=== PATIENT | female | born 1935 | race Caucasian/White ===

== ENCOUNTER 2016-11-18 14:02 | Outpatient (CLI) | payer MEDICARE | END 2016-11-18 14:03 | disposition home or self-care (01) | DX: Z12.31 Encounter for screening mammogram for malignant neoplasm of breast (principal) ==

== ENCOUNTER 2017-11-05 11:13 | Outpatient (CLI) | payer MEDICARE ==
--- NOTE | 2017-11-05 11:51 | XRAY Report ---
TWO VIEW CHEST: 11/05/2017 CLINICAL INDICATION: Persistent cough for 3 months. FINDINGS: Frontal and lateral views of the chest demonstrate a normal cardiac silhouette. The lungs demonstrate peripheral interstitial opacities, likely representing mild fibrosis. No focal consolidation, effusion, or pneumothorax is present. IMPRESSION: LIKELY MILD PERIPHERAL FIBROSIS. TD: 11/05/2017 11:50
== END 2017-11-05 11:14 | disposition home or self-care (01) ==
LOC: DI 11:13
PROVIDERS: ATTEND Internal Medicine
DX: R05 Cough (principal)
CPT/HCPCS: 71046

== ENCOUNTER 2017-12-21 17:05 | Emergency (ER) | payer MEDICARE ==
--- NOTE | 2017-12-21 17:36 | ED Physician Documentation ---
History of Present Illness - Stated complaint Stated Complaint: MENTAL STATUS CHANGE - History obtained from History obtained from: Patient, Family () - History of Present Illness Timing: Other (3 weeks of increasing phobias, aggression. 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 Times of lucidity pat when their kids are present. Most of the hx from the due to poor memory. Of note her was diagnosed with pancreatic cancer in July of this year. He has been stable since then that is about when the symptoms started. Also of note the says that she is pretty much normal when the kids are at home.) Review of Systems Unable to obtain: Confused PD PAST MEDICAL HISTORY - Present Medications Home Medications: Ambulatory Orders Medication Instructions Recorded Confirmed Citalopram Hydrobromide 12/21/17 [Citalopram HBr] QUEtiapine [SEROquel] 25 mg PO QPM #30 tablet 12/21/17 - Allergies Allergies/Adverse Reactions: Allergies Allergy/AdvReac Type Severity Reaction Status Date / Time No Known Drug Allergies Allergy Verified 12/21/17 17:36 - Social History Does the pt smoke?: Yes Smoking Status: Heavy tobacco smoker Does the pt drink ETOH?: No Does the pt have substance abuse?: No - Family History Family history: reports: Non contributory PD ED PE NORMAL - Vitals Vital signs reviewed: Yes - General General: Other (Alert, oriented to person/place/month but not situation) - HEENT HEENT: PERRL, EOMI - Neck Neck: Supple, no meningeal sign, No bony TTP - Cardiac Cardiac: RRR, Other (Loud systolic murmur which they were aware of, she used to have to have dental prophylaxis.) - Respiratory Respiratory: No respiratory distress, Clear bilaterally - Abdomen Abdomen: Normal bowel sounds, Soft, Non tender - Extremities Extremities: No edema, No calf tenderness / cord - Neuro Neuro: rate and cost analyst 2-12 intact, Normal speech. No: Alert and oriented X 3 Eye Opening: Spontaneous Motor: Obeys Commands Verbal: Confused GCS Score: 14 - Psych Psych: Normal mood, Normal affect Results - Vitals Vitals: Vital Signs - 24 hr 12/21/17 12/21/17 12/21/17 17:38 19:32 20:03 Temperature 36.4 C L Heart Rate 78 82 77 Respiratory 19 25 H 22 Rate Blood Pressure 117/67 139/48 H 127/51 L O2 Saturation 100 99 97 12/21/17 20:30 Temperature Heart Rate 76 Respiratory 26 H Rate Blood Pressure 128/50 L O2 Saturation 96 Oxygen O2 Source Room air - Labs Labs: Laboratory Tests 12/21/17 12/21/17 12/21/17 18:26 18:26 18:26 WBC 8.4 RBC 4.25 Hgb 13.0 Hct 39.2 MCV 92.2 MCH 30.6 MCHC 33.1 RDW 13.0 Plt Count 197 MPV 8.1 Neut # 6.0 Lymph # 1.6 Reagan # 0.7 Eos # 0.1 Baso # 0.0 Absolute Nucleated RBC 0.00 Nucleated RBC % 0.0 Sodium 138 Potassium 3.8 Chloride 101 Carbon Dioxide 28 Anion Gap 9.0 BUN 13 Creatinine 0.9 Estimated GFR (MDRD) 60 L Glucose 109 H Calcium 8.9 Total Bilirubin 0.7 AST 21 ALT 23 Alkaline Phosphatase 66 Total Protein 6.5 L Albumin 3.6 Globulin 2.9 Albumin/Globulin Ratio 1.2 Lipase 35 TSH 2.74 - Rads (name of study) CT Head Radiology: EMP read contemporaneously (atrophy, NAD) PD MEDICAL DECISION MAKING - ED course ED course: 82-year-old woman with situational dementia related to her 's cancer diagnosis which improves when her children are home 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 We trialed a small dose of ketamine in the department which really had no change, good or bad. I offered the multiple options for disposition including home and he can call in home caregivers versus staying in the ER for potential transfer to [facility] for evaluation for [facility]-psychiatry tomorrow and he opted for the former. Case discussed by phone with her PCP, Dr. Wayne who recommended Seroquel, 25 mg at night. Departure - Departure Disposition: Home, Self Care Clinical Impression: Pseudodementia Condition: Good Record reviewed to determine appropriate education?: Yes Instructions: ED Confusion, ED Dementia Caregiver Support Prescriptions: QUEtiapine [SEROquel] 25 mg PO QPM #30 tablet Comments: I will call in whatever prescription Dr. Wayne and I choose to [facility] in [place]. Return if worse. Some options for in-home care include [facility], . Or Home instead [facility], Discharge Date/Time: 12/21/17 20:30
[2017-12-21] MEDS ORDERED: KETAMINE 500 MG/10 ML VIAL IVP STA (18:14)
[2017-12-21 18:38] LABS: BASOPHILS % (AUTO) 0.5 %; EOSINOPHILS # (AUTO) 0.1 10^3/uL (0.0-0.7); EOSINOPHILS % (AUTO) 0.8 %; LYMPHOCYTES # (AUTO) 1.6 10^3/uL (1.5-3.5); LYMPHOCYTES % (AUTO) 18.8 %; MEAN CORPUSCULAR HEMOGLOBIN 30.6 pg (27.0-31.0); MEAN CORPUSCULAR HGB CONC 33.1 g/dL (32.0-36.0); MEAN CORPUSCULAR VOLUME 92.2 fL (81.0-99.0); MEAN PLATELET VOLUME 8.1 fL (7.9-10.8); MONOCYTES # (AUTO) 0.7 10^3/uL (0.0-1.0); MONOCYTES % (AUTO) 8.7 %; NEUTROPHILS % (AUTO) 71.2 %; PLT - PLATELET COUNT 197 10^3/uL (130-450); RED BLOOD COUNT 4.25 10^6/uL (4.20-5.40); WHITE BLOOD COUNT 8.4 x10^3/uL (4.8-10.8)
--- NOTE | 2017-12-21 18:40 | CT Preliminary Report ---
Exam: CT HEAD W/O IMPRESSION: Generalized age-related cortical atrophic changes without evidence of acute intracranial abnormality. [facility] SITE ID: [id number]
--- NOTE | 2017-12-21 18:40 | CT Report ---
EXAM: CT HEAD EXAM DATE: 12/21/2017 06:22 PM. CLINICAL HISTORY: Altered. Altered mental status, repetitive, confusion. COMPARISON: None. TECHNIQUE: Multiaxial CT images were obtained from the foramen magnum to the vertex. Reformats: Coron al. IV contrast: None. In accordance with CT protocol optimization, one or more of the following dose reduction techniques w ere utilized for this exam: automated exposure control, adjustment of mA and/or KV based on patient s ize, or use of iterative reconstructive technique. FINDINGS: Parenchyma: No intraparenchymal hemorrhage. No evidence of mass, midline shift, or CT findings of acu te infarction. Valdes-white differentiation is distinct. Mild bilateral chronic microangiopathic white matter changes are evident. Extraaxial Spaces: Normal for age. No subdural or epidural collections identified. Ventricles: The ventricles and cortical sulci are enlarged, consistent with age-related tissue loss. Sinuses: Mild right maxillary sinus mucosal thickening. Bones: No evidence of fracture or calvarial defect. IMPRESSION: Generalized age-related cortical atrophic changes without evidence of acute intracranial abnormality. [facility] Referring Provider Line: [phone] SITE ID: [id number]
[2017-12-21 18:49] LABS: ALBUMIN 3.6 g/dL (3.2-5.5); ALBUMIN/GLOBULIN RATIO 1.2 (1.0-2.2); BILIRUBIN,TOTAL 0.7 mg/dL (0.2-1.0); CALCIUM 8.9 mg/dL (8.5-10.3); CREATININE 0.9 mg/dL (0.4-1.0); TOTAL PROTEIN 6.5 g/dL (6.7-8.2)
[2017-12-21 20:31] VITALS: BP 128/50
== END 2017-12-21 20:30 | disposition home or self-care (01) ==
LOC: ED 17:05
DX: F03.90 Unspecified dementia, unspecified severity, without behavioral disturbance, psychotic disturbance, mood disturbance, and anxiety (principal); F05 Delirium due to known physiological condition; R01.1 Cardiac murmur, unspecified; F17.200 Nicotine dependence, unspecified, uncomplicated
CPT/HCPCS: 36415; 70450; 80053; 83690; 84443; 85025; 96374; 99283

== ENCOUNTER 2017-12-24 11:52 | Emergency (ER) | payer MEDICARE ==
[2017-12-24 12:04] VITALS: BP 135/45
--- NOTE | 2017-12-24 12:35 | ED Physician Documentation ---
History of Present Illness - Stated complaint Stated Complaint: R HAND INJURY/CONFUSSION - Chief complaint Chief Complaint: MHE - History obtained from History obtained from: Patient, Family - History of Present Illness Timing: Other (months) Pain level max: 0 Pain level now: 0 Improved by: nothing Worsened by: nothing - Additonal information Additional information: Patient is an 82-year-old female who presents to the emergency department with increasing confusion over the past several weeks. She is brought in by her daughter today. They state that this really started back in July when her was diagnosed pancreatic cancer and the patient's daughter . Since that time she has had increasing confusion over the past several weeks has been exhibiting abnormal behavior including locking herself outside and attempting to sleep outside at night. She has been more restless than usual and more anxious per the family. The daughter is visiting from [place]. She has not had any fevers. She was seen here 3 days ago for same, normal head CT and lab work at that time. She was started on Seroquel 25 mg p.o. nightly but has not been taking this. She also sustained a laceration to the right hand a few days ago. This was bandaged at home. Her tetanus is up-to-date. Denies any new medications other than the Seroquel. Denies any changes to her medications. Review of Systems Ten Systems: 10 systems reviewed and negative Constitutional: denies: Fever, Chills Ears: denies: Ear pain Nose: denies: Rhinorrhea / runny nose Throat: denies: Sore throat Cardiac: denies: Chest pain / pressure Respiratory: denies: Cough GI: denies: Nausea, Vomiting, Diarrhea Skin: denies: Rash Musculoskeletal: denies: Neck pain, Back pain Neurologic: reports: Confused. denies: Focal weakness, Numbness, Headache, Head injury PD PAST MEDICAL HISTORY - Past Medical History Past Medical History: Yes Psych: Anxiety - Present Medications Home Medications: Ambulatory Orders Medication Instructions Recorded Confirmed Citalopram Hydrobromide 12/21/17 [Citalopram HBr] QUEtiapine [SEROquel] 25 mg PO QPM #30 tablet 12/21/17 - Allergies Allergies/Adverse Reactions: Allergies Allergy/AdvReac Type Severity Reaction Status Date / Time No Known Drug Allergies Allergy Verified 12/24/17 12:03 - Living Situation Living Situation: reports: With family Living Arrangement: reports: At home - Social History Does the pt smoke?: Yes Smoking Status: Heavy tobacco smoker Does the pt drink ETOH?: No Does the pt have substance abuse?: No - Family History Family history: reports: Non contributory - Immunizations Immunizations are current?: Yes Immunizations: TDAP current <10years PD ED PE NORMAL - Vitals Vital signs reviewed: Yes - General General: No acute distress, Well developed/nourished, Other (alert, oriented to person, place and time. states she does not want to be here) - HEENT HEENT: PERRL, Moist mucous membranes - Neck Neck: Supple, no meningeal sign - Cardiac Cardiac: RRR - Respiratory Respiratory: No respiratory distress, Clear bilaterally ( ) - Abdomen Abdomen: Soft, Non tender, Non distended - Back Back: No spinal TTP - Derm Derm: Warm and dry - Neuro Neuro: distance education director 2-12 intact, No motor deficit, No sensory deficit, Normal speech - Psych Psych: Other (anxious, keeps saying "don't leave me here") Results - Vitals Vitals: Vital Signs - 24 hr 12/24/17 11:59 Temperature 36.2 C L Heart Rate 72 Respiratory 22 Rate Blood Pressure 135/45 H O2 Saturation 94 Oxygen O2 Source Room air PD MEDICAL DECISION MAKING - ED course Complexity details: reviewed old records, re-evaluated patient, considered differential, d/w patient, d/w family ED course: Patient is an 82-year-old female who presents to the emergency department with possible depression versus dementia with behavioral disturbance. Appears to have increasing anxiety and paranoia at home. Consultation with tele- psychiatry was performed, Dr. Bravo was consulted and agrees with the Seroquel, 25 mg by mouth at night. If her symptoms continue to persist, would need to be increased to 50 mg by mouth at night. She will need outpatient [facility] psych follow-up. Resources were given to the patient and family. They are comfortable taking her home at this time. She does not appear to be an acute danger to herself or others. Dr. Wayne is unavailable today, will send the chart note to her. Patient and family counseled regarding signs and symptoms for which I believe and urgent re-evaluation would be necessary. Patient with good understanding of and agreement to plan and is comfortable going home at this time This document was made in part using voice recognition software. While efforts are made to proofread this document, sound alike and grammatical errors may occur. Departure - Departure Disposition: 01 Home, Self Care Clinical Impression: Depression Qualifiers: Depression Type: unspecified Qualified Code(s): F32.9 - Major depressive disorder, single episode, unspecified Dementia Qualifiers: Dementia type: unspecified type Dementia behavioral disturbance: with behavioral disturbance Qualified Code(s): F03.91 - Unspecified dementia with behavioral disturbance Condition: Good Instructions: ED Dementia Caregiver Support, ED Depression Follow-Up: Alyssa Wayne MD [Primary Care Provider] - Within 3 Days Comments: Continue the Seroquel 25 mg by mouth at night. Call Dr. Wayne's office on Wednesday for referral to geriatric psychiatry. If the paranoia and anxiety continues, she will likely need the Seroquel increased to 50 mg by mouth at night. Return if she worsens. You were seen by Dr. Antoine (a psychiatrist) here in the Emergency Department today. Discharge Date/Time: 12/24/17 14:17
--- NOTE | 2017-12-24 14:03 | TELEPSYCH PHYS NOTE ---
Telepsych Note - CHIEF COMPLAINT/HX OF PRESENT ILLNESS Cheif Complaint and History of Present Illness: Patient Name: Kim Campos : 39 Date: 12/24/2017 Location of Patient: [place] Location of Provider: [place] Provider Name: Nicci Antoine Provider Credentials: This evaluation was conducted via tele-psychiatry with the assistance of onsite staff: Dr Waldemar Duffy Chief Complaint: confusion History of Present Illness: This is an 82 yo female returning to the ED for confusion with behavior like sleeping outside. Staff note patient is restless and anxiously perseverating on "don't leave me here!" Work-up, including head CT on last presentation, has been negative. Patient had recently been prescribed seroquel but is now hiding the medication and refusing to take it. On interview, patient is accompanied by her daughter Marissa who is visiting from [place]. Patient is upset about being brought to hospital and had to be placated on several occasions because she did not want to be discussing these issues. Patient does feel depressed due to her 's recent cancer diagnosis as well as the recent of a daughter. She denies any SI, HI, and hallucinations. She is more reticent when asked if she felt safe at home and said vaguely that someone was "harassing" her. Daughter explained that patient has become more and more convinced that their home has been sold and that they are going to be kicked out. This tends to become more of a problem later in the day. None of these issues had come up until the patient had suffered these recent stressors and primary care started celexa 8 weeks ago. It was ineffective and thus stopped 1 week ago. Seroquel was then tried but patient has not been taking and had hid them from her so the issue would be dropped. Daughter says they now know where the medicine is. SI/ Self Harm/HI/Violence: denies all Psychiatric History/Treatment History: no inpatient; psych meds has been managed by primary care: celexa started 8 weeks ago and stopped 1 week ago; recently given seroquel but patietn not taking Drug/Alcohol History: denies Medical History: reviewed; no active issues Medications & Freq: not taking recently prescribed seroquel; only other medication is eyedrops Allergies: NKDA Family Psych History/History of Suicide: none Social History: Living Situation: with who is due to start treatment soon Employment: none Stressors: recent of a daughter, diagnosed with cancer Strengths/supports: daughter based in [place] is supportive Mental Status Exam: Appearance and Attire: appropriately dressed and groomed Attitude and Behavior: withdrawn but could be encouraged to participate in interview Speech: soft, monotone, normal rate Affect and Mood: blunted, "ok" Association and Thought Processes: goal directed Thought Content: no SI or HI, +paranoia; no hallucinations Sensorium and Orientation: alert and oriented to situation Cognitive Functioning: impaired Insight and Judgment: fair to poor Impression/Risk Assessment: This is an 82 yo female returning to the ED with confusion with paranoia. Patient has also had depression due to recent stressors but an adequate antidepressant trial did not help. She is recently started on seroquel but had been refusing to take. She and daughter agree to restarting the medication and pursuing additional supports at home. No SI, HI, or hallucinations. Diagnosis: F32.9 Unspecified depressive disorder; F02.81 (provisional) Dementia with behavioral disturbance Treatment Recommendations: Pharmacological: seroquel 25mg nightly with plan to increase to 50mg if paranoia continues Level of Care: outpatient geropsych supports; may need an IADL evaluation to help determine safety at home - PSYCHIATRIC HX/TREATMENT HX Psychiatric: Depression, Anxiety - MEDICAL HX Does the pt have a hx of MRSA?: No Cardiovascular: Murmur Is Patient ?: No - HOME MEDICATIONS Home Meds (as last confirmed): Patient History Medication Instructions Recorded Confirmed Citalopram Hydrobromide 12/21/17 [Citalopram HBr] - ALLERGIES Allergies (as last confirmed): Allergies Allergy/AdvReac Type Severity Reaction Status Date / Time No Known Drug Allergies Allergy Verified 12/24/17 12:03 - TIME SPENT & PROVIDER LOCATION Telepsych consultation conducted via videoconferencing: Yes List names and roles of persons who participated in consult: Nicci Antoine. Kim Campos Telepsych Provider Location: [place] Time Telepsych consult began: 13:08 Time Telepsych consult completed: 14:03
== END 2017-12-24 14:17 | disposition home or self-care (01) ==
LOC: ED 11:52
DX: F32.9 Major depressive disorder, single episode, unspecified (principal); F03.91 Unspecified dementia, unspecified severity, with behavioral disturbance; T43.596A Underdosing of other antipsychotics and neuroleptics, initial encounter; Z91.128 Patient's intentional underdosing of medication regimen for other reason; Y92.009 Unspecified place in unspecified non-institutional (private) residence as the place of occurrence of the external cause; F41.9 Anxiety disorder, unspecified; F17.200 Nicotine dependence, unspecified, uncomplicated
CPT/HCPCS: 51701; 99283; 99285; G0426; Q3014

== ENCOUNTER 2018-04-14 08:00 | Outpatient (CLI) | payer MEDICARE | END 2018-04-14 08:01 | disposition home or self-care (01) | LOC: LAB.R 08:00 | PROVIDERS: ATTEND Internal Medicine | DX: R19.7 Diarrhea, unspecified (principal) | CPT/HCPCS: 81599; 83630; 87045; 87046; 87177; 87209; 87329; 87493 ==

== ENCOUNTER 2019-08-29 15:00 | Outpatient (CLI) | payer MEDICARE | END 2019-08-29 15:01 | disposition home or self-care (01) | LOC: PC 15:00 | PROVIDERS: ATTEND Nurse Practitioner Adult Health | DX: Z53.9 Procedure and treatment not carried out, unspecified reason (principal) ==